=== PATIENT | male | born 1955 | race Caucasian/White ===

== ENCOUNTER 2018-05-30 15:13 | Outpatient (CLI) | payer BC ==
--- NOTE | 2018-05-30 16:12 | RAD ---
FOUR VIEWS OF THE LUMBAR SPINE: 05/30/18 INDICATION: Spondylosis. COMPARISON: None. FINDINGS: There is moderate disc degenerative disease at L4-5. There is slight grade I anterolisthesis at L4 an d L5. There is moderate facet osteoarthritis at L4-5 and L5-S1. There is accentuation of the grade I anterolisthesis with flexion at L4-5 with reduction with extension. IMPRESSION: 1. Mild to moderate multilevel spondylosis of the lumbar spine most prominent at L4-5 and L5-S1. 2. Grade I anterolisthesis of L4-5 with accentuation with flexion and slight reduction with exte nsion. POS: GABRIELLA
== END 2018-05-30 15:14 | disposition home or self-care (01) ==
LOC: RAD 15:13
PROVIDERS: ATTEND Specialist
DX: M47.816 Spondylosis without myelopathy or radiculopathy, lumbar region (principal); M47.897 Other spondylosis, lumbosacral region; M43.16 Spondylolisthesis, lumbar region
CPT/HCPCS: 72120

== ENCOUNTER 2019-01-06 20:30 | Outpatient (CLI) | payer BC | END 2019-01-06 20:31 | disposition home or self-care (01) | LOC: SLEEPLAB 20:30 | PROVIDERS: ATTEND Internal Medicine Critical Care Medicine | DX: G47.33 Obstructive sleep apnea (adult) (pediatric) (principal); R06.83 Snoring; G47.00 Insomnia, unspecified; I10 Essential (primary) hypertension | CPT/HCPCS: 95810 ==

== ENCOUNTER 2019-01-27 19:30 | Outpatient (CLI) | payer BC | END 2019-01-27 19:31 | disposition home or self-care (01) | LOC: SLEEPLAB 19:30 | PROVIDERS: ATTEND Internal Medicine Critical Care Medicine | DX: G47.33 Obstructive sleep apnea (adult) (pediatric) (principal); G47.10 Hypersomnia, unspecified; R06.83 Snoring; E66.9 Obesity, unspecified; Z68.28 Body mass index [BMI] 28.0-28.9, adult | CPT/HCPCS: 95811 ==

== ENCOUNTER 2019-08-14 15:09 | Outpatient (CLI) | payer BC ==
--- NOTE | 2019-08-14 16:09 | MRI ---
MRI Lumbar Spine WO Con History: M [age] other intervertebral disc disorder Comparison: Radiograph 2018 Findings: The aortic contour is nonaneurysmal. Cyst interpolar right kidney incompletely evaluated. N o retroperitoneal periaortic adenopathy. Paraspinal musculature is normal. No marrow infiltrative process. Conus medullaris terminates near the inferior endplate of L1. Levels are as follows: L1-2: Mild facet arthrosis. No neural foraminal or spinal canal narrowing. L2-3: Mild disc desiccation. Low-grade circumferential disc bulge. Mild facet arthrosis. No neural fo raminal or spinal canal narrowing. L3-4: Mild disc desiccation. Circumferential disc bulge. Moderate facet arthropathy. Moderate bilater al neural foraminal narrowing. Increased posterior epidural fat. The spinal canal measures approximately 6 cm. L4/L5: Moderate degenerative disc space height loss. 2 mm anterolisthesis. Severe facet arthropathy w ith large facet joint effusions. Large osteophytes of the facet joints. There is transverse narrowing of the spinal canal to approximately 7 mm. There is posterior displacement of disc material as an adaptation to subluxation. This adaptation to subluxation causes moderate to severe bilateral neural foraminal narrowing. Abutment of the exiting and traversing nerve roots. Spinal canal is narrowed to approximately 5 mm. L5/S1: Mild disc desiccation. Circumferential disc bulge. Bilateral subfrontal disc osteophyte comple xes. Moderate to severe left and moderate right neural foraminal narrowing with abutment of both exiting nerve roots. There is narrowing of the interspinous space L3-L5 with cortical sclerosis. Impression: Multilevel spondylosis as described, greatest at L4/L5 and L5/S1 with nerve root compress ion.
== END 2019-08-14 15:10 | disposition home or self-care (01) ==
LOC: TBSIIMAG 15:09
PROVIDERS: ATTEND Psychiatry & Neurology Neurology
DX: M51.27 Other intervertebral disc displacement, lumbosacral region (principal); M47.816 Spondylosis without myelopathy or radiculopathy, lumbar region; M47.817 Spondylosis without myelopathy or radiculopathy, lumbosacral region
CPT/HCPCS: 72148

== ENCOUNTER 2023-05-31 08:05 | Outpatient (CLI) | payer BC | END 2023-05-31 08:06 | disposition home or self-care (01) | LOC: SCSMRI 08:05 | PROVIDERS: ATTEND Nurse Practitioner Family | DX: M47.22 Other spondylosis with radiculopathy, cervical region (principal) | CPT/HCPCS: 72141 ==